=== PATIENT | male | born 1965 | race Caucasian/White ===

== ENCOUNTER 2020-11-17 11:08 | Emergency (ER) | payer OTHER, BC ==
[2020-11-17] MEDS ORDERED: Sodium Chloride 0.9% 10 ML Syringe FLUSH PRN (11:16)
[2020-11-17] MEDS ORDERED: Aspirin 81 MG Tab.Chew PO ONE (11:16)
--- NOTE | 2020-11-17 11:16 | EDM.PDOC ---
ED HPI GENERAL MEDICAL PROBLEM - General Chief Complaint: Chest Pain Stated Complaint: chest pains Time Seen by Provider: 11/17/20 11:12 Source of Information: Reports: Patient, Family (spouse), Correction Records, Old Records, RN History Limitations: Reports: No Limitations - History of Present Illness INITIAL COMMENTS - FREE TEXT/NARRATIVE: Pt presents to ER with c/o sudden onset at 1045HRS this morning of sharp chest pain that radiates back and forth across the chest and into the throat. Denies shortness of breath, cough, palpitations, edema, orthopnea, or N/V. Admits to lightheadedness. Denies fever or chills. Pt states the pain has resolved by the time he arrived to the ER. Pt admits he is very anxious. Pt had COVID in May, and vaccine x2 doses. Hx of HTN. Onset: Today, Sudden Duration: Resolved Prior to Arrival Location: Reports: Chest Quality: Reports: Sharp Severity: Moderate Improves with: Reports: None Worsens with: Reports: None Associated Symptoms: Reports: No Other Symptoms - Related Data Allergies Allergy/AdvReac Type Severity Reaction Status Date / Time No Known Allergies Allergy Verified 11/17/20 11:34 Home Meds: Home Meds Cholecalciferol (Vitamin D3) [Vitamin D3] 2,000 unit PO DAILY 11/17/20 [History] FLUoxetine HCl [Fluoxetine HCl] 20 mg PO DAILY 11/17/20 [History] Naproxen 550 mg PO BID 11/17/20 [History] Omeprazole 20 mg PO BEDTIME 11/17/20 [History] SUMAtriptan succinate [Imitrex] 100 mg PO ASDIRECTED 11/17/20 [History] Testosterone Cypionate [Depo-Testosterone] 200 mg IM [id number] 11/17/20 [History] Topiramate [Topamax] 100 mg PO BEDTIME 11/17/20 [History] amLODIPine [Norvasc] 5 mg PO DAILY 11/17/20 [History] gemfibroziL [Gemfibrozil] 600 mg PO DAILY 11/17/20 [History] lisinopriL [Lisinopril] 20 mg PO BID 11/17/20 [History] Past Medical History Cardiovascular History: Reports: Hypertension Gastrointestinal History: Reports: Fatty Liver Social & Family History - Family History Family Medical History: No Pertinent Family History - Living Situation & Occupation Living situation: Reports: , with Family Occupation: Employed ED ROS GENERAL - Review of Systems Review Of Systems: Comprehensive ROS is negative, except as noted in HPI. ED EXAM, GENERAL - Physical Exam Exam: See Below Exam Limited By: No Limitations General Appearance: Alert, WD/WN, No Apparent Distress, Anxious Nose: Normal Inspection, Normal Mucosa, No Blood Throat/Mouth: Normal Inspection, Normal Lips, Normal Teeth, Normal Gums, Normal Oropharynx, Normal Voice, No Airway Compromise Head: Atraumatic, Normocephalic Neck: Normal Inspection, Supple, Non-Tender, Full Range of Motion Respiratory/Chest: No Respiratory Distress, Lungs Clear, Normal Breath Sounds, No Accessory Muscle Use, Chest Non-Tender Cardiovascular: Normal Peripheral Pulses, Regular Rate, Rhythm, No Edema, No Gallop, No JVD, No Murmur, No Rub GI/Abdominal: Normal Bowel Sounds, Soft, Non-Tender, No Organomegaly, No Distention, No Abnormal Bruit, No Mass Back Exam: Normal Inspection Extremities: Normal Inspection, Normal Range of Motion, Non-Tender, Normal Capillary Refill, No Pedal Edema Neurological: Alert, Oriented, CN II-XII Intact, Normal Cognition, Normal Gait, No Motor/Sensory Deficits Psychiatric: Normal Affect, Anxious Skin Exam: Warm, Dry, Intact, Normal Color, No Rash #1 Interpretation EKG Date: 11/17/20 Time: 11:18 Rate (Beats/Min): 65 [place]: Normal P-Wave: Present QRS: Normal ST-T: Other (Nonspecific ST changes) QT: Normal Comparison: NA - No Prior EKG EKG Interpretation Comments: No acute ischemic changes. Course - Vital Signs Last Recorded V/S: Last Vital Signs Temp 97.6 F 11/17/20 14:22 Pulse 76 11/17/20 14:22 Resp 18 11/17/20 14:22 BP 136/70 11/17/20 14:22 Pulse Ox 96 11/17/20 14:22 - Orders/Labs/Meds Orders: Active Orders 24 hr Category Date Time Status EKG 12 Lead [EKG Documentation Completion] [RC] STAT Care 11/17/20 11:16 Active EKG Documentation Completion [RC] ROUTINE Care 11/17/20 15:30 Active Peripheral IV Care [RC] . DIRECTED Care 11/17/20 11:17 Active Heart Healthy Diet [DIET] Diet 11/17/20 Lunch Active Sodium Chloride 0.9% [Saline Flush] Med 11/17/20 11:16 Active 10 ml FLUSH ASDIRECTED PRN Peripheral IV Insertion Adult [OM.PC] Stat Oth 11/17/20 11:16 Ordered Medication Orders Sodium Chloride (Sodium Chloride 0.9% 10 Ml Syringe) 10 ml FLUSH ASDIRECTED PRN PRN Reason: Keep Vein Open Labs: Laboratory Tests 11/17/20 11/17/20 11/17/20 Range/Units 11:31 11:31 11:31 WBC 6.2 (5.0-10.0) 10^3/uL RBC 5.22 (4.6-6.2) 10^6/uL Hgb 15.7 (14.0-18.0) g/dL Hct 44.2 (40.0-54.0) % MCV 84.7 (80-100) fL MCH 30.1 (27.0-34.0) pg MCHC 35.5 H (33.0-35.0) g/dL Plt Count 231 (150-450) 10^3/uL Neut % (Auto) 54.0 (42.2-75.2) % Lymph % (Auto) 35.9 (20.5-50.1) % Jackson % (Auto) 8.8 H (2-8) % Eos % (Auto) 1.0 (1.0-3.0) % Baso % (Auto) 0.3 (0.0-1.0) % PT 10.5 (9.0-12.0) SEC INR 1.0 (0.9-1.2) APTT 23.0 (22.0-34.0) SEC D-Dimer, Quantitative < 100 (0-400) ng/mL Sodium 137 (136-145) mmol/L Potassium 4.1 (3.5-5.1) mmol/L Chloride 100 (98-107) mmol/L Carbon Dioxide 29 (21-32) mmol/L Anion Gap 12.1 (7-13) mEq/L BUN 20 H (7-18) mg/dL Creatinine 1.01 (0.70-1.30) mg/dL Est Cr Clr Drug Dosing 99.93 mL/min Estimated GFR (MDRD) > 60 BUN/Creatinine Ratio 19.8 (No establ ref range) Glucose 109 H (70-99) mg/dL Calcium 8.9 (8.5-10.1) mg/dL Total Bilirubin 0.6 (0.2-1.0) mg/dL AST 29 (15-37) U/L ALT 67 H (16-63) U/L Alkaline Phosphatase 62 (46-116) U/L Troponin I < 0.017 (0.000-0.056) ng/mL Total Protein 6.9 (6.4-8.2) g/dL Albumin 4.0 (3.4-5.0) g/dL Globulin 2.9 Albumin/Globulin Ratio 1.4 Amylase 103 (25-115) U/L Lipase 309 (73-393) U/L /06/28 Range/Units 15:55 WBC (5.0-10.0) 10^3/uL RBC (4.6-6.2) 10^6/uL Hgb (14.0-18.0) g/dL Hct (40.0-54.0) % MCV (80-100) fL MCH (27.0-34.0) pg MCHC (33.0-35.0) g/dL Plt Count (150-450) 10^3/uL Neut % (Auto) (42.2-75.2) % Lymph % (Auto) (20.5-50.1) % Jackson % (Auto) (2-8) % Eos % (Auto) (1.0-3.0) % Baso % (Auto) (0.0-1.0) % PT (9.0-12.0) SEC INR (0.9-1.2) APTT (22.0-34.0) SEC D-Dimer, Quantitative (0-400) ng/mL Sodium (136-145) mmol/L Potassium (3.5-5.1) mmol/L Chloride (98-107) mmol/L Carbon Dioxide (21-32) mmol/L Anion Gap (7-13) mEq/L BUN (7-18) mg/dL Creatinine (0.70-1.30) mg/dL Est Cr Clr Drug Dosing mL/min Estimated GFR (MDRD) BUN/Creatinine Ratio (No establ ref range) Glucose (70-99) mg/dL Calcium (8.5-10.1) mg/dL Total Bilirubin (0.2-1.0) mg/dL AST (15-37) U/L ALT (16-63) U/L Alkaline Phosphatase (46-116) U/L Troponin I < 0.017 (0.000-0.056) ng/mL Total Protein (6.4-8.2) g/dL Albumin (3.4-5.0) g/dL Globulin Albumin/Globulin Ratio Amylase (25-115) U/L Lipase (73-393) U/L Meds: Medications Generic Name Dose Route Start Last Admin Trade Name Freq PRN Reason Stop Dose Admin Sodium Chloride 10 ml 11/17/20 11:16 Sodium Chloride 0.9% 10 Ml Syringe FLUSH ASDIRECTED PRN Keep Vein Open Discontinued Medications Generic Name Dose Route Start Last Admin Trade Name Freq PRN Reason Stop Dose Admin Aspirin 324 mg 11/17/20 11:16 11/17/20 11:25 Aspirin 81 Mg Tab.Chew PO 11/17/20 11:17 324 mg ONETIME ONE Administration - Radiology Interpretation Free Text/Narrative:: Chest XR: no acute process per Rad. report. - Re-Assessments/Exams Free Text/Narrative Re-Assessment/Exam: 11/17/20 12:35 Initial EKG and Trop. negative. Pt will be held as extended ER for repeat Trop. and EKG at 1530HRS. Departure - Departure Time of Disposition: 16:29 Disposition: Home, Self-Care 01 Condition: Good Clinical Impression: Chest pain Qualifiers: Chest pain type: unspecified Qualified Code(s): R07.9 - Chest pain, unspecified Instructions: Nonspecific Chest Pain, Adult Forms: ED Department Discharge Additional Instructions: Follow up in clinic within the next one week for recheck, and consideration of referral for a cardiac stress test. Activity as tolerated. Return to ER if chest pain returns or becomes severe. Sepsis Event Note (ED) - Focused Exam Vital Signs: Vital Signs Temp Pulse Resp BP BP Pulse Ox 11/17/20 14:22 97.6 F 76 18 136/70 96 11/17/20 13:05 97.7 F 69 18 143/90 H 96 11/17/20 11:16 97.8 F 76 22 H 147/97 H 97 - My Orders Last 24 Hours: My Active Orders 11/17/20 11:16 EKG 12 Lead [EKG Documentation Completion] [RC] STAT Sodium Chloride 0.9% [Saline Flush] 10 ml FLUSH ASDIRECTED PRN Peripheral IV Insertion Adult [OM.PC] Stat 11/17/20 11:17 Peripheral IV Care [RC] . DIRECTED 11/17/20 Lunch Heart Healthy Diet [DIET] 11/17/20 15:30 EKG Documentation Completion [RC] ROUTINE - Assessment/Plan Last 24 Hours: My Active Orders 11/17/20 11:16 EKG 12 Lead [EKG Documentation Completion] [RC] STAT Sodium Chloride 0.9% [Saline Flush] 10 ml FLUSH ASDIRECTED PRN Peripheral IV Insertion Adult [OM.PC] Stat 11/17/20 11:17 Peripheral IV Care [RC] . DIRECTED 11/17/20 Lunch Heart Healthy Diet [DIET] 11/17/20 15:30 EKG Documentation Completion [RC] ROUTINE
[2020-11-17 12:00] LABS: ANION GAP 12.1 mEq/L (7-13); CHLORIDE,CL 100 mmol/L (98-107); SODIUM,NA 137 mmol/L (136-145)
--- NOTE | 2020-11-17 12:04 | CR ---
EXAMINATION: Chest 1V Frontal lordotic AP chest SEX: Male AGE: 54 years CLINICAL HISTORY: 54-year-old male with chest pain. INTERPRETATION: Negative exam. 1. Normal cardiac silhouette (size and configuration). Left-sided aortic arch. External desk monitor leads. 2. No pulmonary vascular congestion, cephalization of flow, alveolar edema or dependent pleural fluid accumulation. 3. No lung mass or hilar lymphadenopathy. 4. No alveolar infiltrate, atelectasis or collapse. No peripheral "groundglass" interstitial lung densities. 5. No pneumothorax or pneumomediastinum. Normal midline tracheal bronchial airway.
== END 2020-11-17 16:51 | disposition home or self-care (01) ==
LOC: DL.ED 11:08
DX: R07.89 Other chest pain (principal); I10 Essential (primary) hypertension; Z79.899 Other long term (current) drug therapy
CPT/HCPCS: 36415; 71045; 80053; 82150; 83690; 84484; 85025; 85379; 85610; 85730; 93005; 93010; 99284; 99285-25; A9270-GY